=== PATIENT | female | born 1995 | race Caucasian/White ===

== ENCOUNTER → 2019-05-30 15:40 | Observation (INO) ==
[2019-05-30 14:59] LABS: Amphetamine Screen,Urine Negative ng/mL (Cutoff=1000); Barbiturate Screen,Urine Negative ng/mL (Cutoff=200); Benzodiazepines Screen,Urine Negative ng/mL (Cutoff=200); Cannabinoid Screen,Urine Negative ng/mL (Cutoff = 50); Cocaine Screen,Urine Negative ng/mL (Cutoff= 300); Opiate Screen,Urine Negative ng/mL (Cutoff=300); Phencyclidine Screen,Urine Negative ng/mL (Cutoff=25)
--- NOTE | 2019-05-30 15:26 | Discharge Summary ---
Date of Encounter: 05/30/19 Time of Encounter: 15:24 - Discharge Diagnosis (1) Gestational hypertension Priority: Secondary Status: Acute Comments: Start labetalol 200mg BID Qualifiers: Trimester: third trimester Qualified Code(s): O13.3 - Gestational [-induced] hypertension without significant proteinuria, third trimester (2) 32 weeks gestation of Priority: Primary Status: Acute Comments: Follow-up with Dr. Albrecht as scheduled Discharge home - Discharge Medications Prescriptions: New Labetalol HCl 200 mg PO BID #60 tablet Continued Tablet Home Medications: Labetalol HCl 200 mg PO BID #60 tablet 05/30/19 [Rx] Tablet 05/30/19 [History] Allergies/Adverse Reactions: Allergy/AdvReac Type Severity Reaction Status Date / Time No Known Allergies Allergy Verified 05/30/19 13:43 Data Procedures and tests throughout hospitalization: Laboratory Tests 05/30/19 14:20 Urine Opiates Screen Negative Ur Buprenorphine Scrn Negative Ur Barbiturates Screen Negative Ur Phencyclidine Scrn Negative Ur Amphetamines Screen Negative U Benzodiazepines Scrn Negative Urine Cocaine Screen Negative U Marijuana (THC) Screen Negative Ur Drug Screen Interp See Below Labs on day of discharge: Labs from last 24 hours 05/30/19 14:20 Urine Opiates Screen Negative Ur Buprenorphine Scrn Negative Ur Barbiturates Screen Negative Ur Phencyclidine Scrn Negative Ur Amphetamines Screen Negative U Benzodiazepines Scrn Negative Urine Cocaine Screen Negative U Marijuana (THC) Screen Negative Ur Drug Screen Interp See Below Date of admission: 05/30/19 13:22 Primary care physician: PCP NONE Discharging clinician: Lesile Lubin Anticipated date of discharge: 05/30/19 - Patient Status Disposition: Home, Self-Care Condition: Good Functional capacity at discharge: independent ambulation Overall status at discharge: patient is progressing back to baseline - Discharge Instructions Follow Up With: NONE,PCP [Primary Care Provider] - Xander Albrecht MD [Partnered Physician] - Additional Instructions: LABOR AND DELIVERY DISCHARGE INSTRUCTIONS Signs and Symptoms to be Reported to your Doctor Immediately: * Sudden gush, continuous or intermittent lead of fluid from vagina (note the time of gush and color of fluid) * Onset of bright red vaginal bleeding with or without pain (if you had a vaginal exam during this visit you may notice some dark red spotting. This is normal.) * Lower abdominal cramping or backache that is premenstrual-like feeling. * More than 6 contractions in one hour. * Burning during urination, having to urinate more frequently or pain in your mid-back. * A change in the baby's activity. This could be an increase or decrease in activity. * Severe headache which does not go away with tylenol. * Sudden swelling in the face, hands, arms and/or legs. * Upper abdominal pain - sometimes associated with heartburn or nausea and is not relieved by Maalox, Mylanta or Tums. * Dizziness or blurred vision or visual disturbances (seeing stars/lights). * Kick Counts One hour after a meal, lay down on one side in a quiet place. Count the number of john the baby moves during an hour. If less than 6 movements, notify your physician. Diet: *Force fluids - 8-10 tall glasses of fluid per day. May include popsicles and jello. *Limit caffeine - this includes chocolate, coffee, tea, any soft drink containing such as all imtiaz, Matt Yellow and Mountain Dew - Diet and Activity Activity: increase activity as tolerated Diet: regular diet Hospital Course [employer] Reason for admission: other Discharge diagnosis: other Hospital course: Patient presents with complaint of elevated blood pressures at home along with headache and blurry vision. She was monitored for several hours with normotensive pressures. PIH evaluation was negative. She was started on labetalol 200 mg twice a day. She was discharged home in stable condition with instructions for follow-up. Time Attestation: Total time spent providing and/or coordinating discharge services: Time Spent: Less than 30 minutes Exam - Constitutional General appearance IM: A&O X 3 - Respiratory Respiratory exam: Present: CTAB - Cardiovascular Cardiovascular exam IM: Present: RRR, +S1, +S2 - GI/Abdominal GI/Abdominal exam IM: normal bowel sounds - Rectal Rectal exam: deferred - Uterine Tone: Firm - Extremities Exam Extremities exam IM: Present: full ROM - Neurological Exam Neurological exam: alert, oriented X3, strengths equal and symetr throughout - VTE Reasons for not Prescribing Prophylaxis: Treatment not Indicated - Low risk for VTE
== END | disposition home or self-care (01) ==
LOC: 1NENULAB
PROVIDERS: ADMIT Advanced Practice Midwife; ATTEND Advanced Practice Midwife

== ENCOUNTER 2019-06-05 17:34 | Observation (INO) ==
[2019-06-05 18:19] LABS: Basophils % 0.2 %; Eosinophils # 0.1 K/mcL (0.0-0.6); Eosinophils % 0.9 %; Hematocrit 34.1 % (35.3-44.9); Hemoglobin 11.2 g/dL (11.5-15.4); Immature Granulocytes % 0.7 % (0-4); Lymphocytes # 1.6 K/mcL (0.6-4.6); Lymphocytes % 11.5 %; Mean Corpuscular HGB Conc 32.8 g/dL (31.6-35.5); Mean Corpuscular Hemoglobin 29.9 pg (28.0-33.3); Mean Corpuscular Volume 90.9 fL (83.0-100.0); Monocytes # 0.9 K/mcL (0.0-1.3); Monocytes % 6.2 %; Neutrophils # 11.1 K/mcL (1.6-8.9); Platelet Count 228 K/mcL (140-400); Red Blood Count 3.75 M/mcL (3.82-4.97); Red Cell Distribution Width 12.8 % (11.5-14.5); Segmented Neutrophils % 80.5 %; White Blood Count 13.8 K/mcL (4.3-11.1)
[2019-06-05] MEDS ORDERED: Acetaminophen 325 MG TABLET PO ONE (18:24)
[2019-06-05 18:28] LABS: Amphetamine Screen,Urine Negative ng/mL (Cutoff=1000); Barbiturate Screen,Urine Negative ng/mL (Cutoff=200); Benzodiazepines Screen,Urine Negative ng/mL (Cutoff=200); Cannabinoid Screen,Urine Negative ng/mL (Cutoff = 50); Cocaine Screen,Urine Negative ng/mL (Cutoff= 300); Opiate Screen,Urine Negative ng/mL (Cutoff=300); Phencyclidine Screen,Urine Negative ng/mL (Cutoff=25); Protein/Creatinine Ratio,Urine 0.17 mg/mg (0.00-0.20)
[2019-06-05 18:42] LABS: Alanine Aminotransferase 37 Units/L (7-52); Aspartate Amino Transferase 21 Units/L (13-39); BUN/Creatinine Ratio 10 (6-26); Blood Urea Nitrogen 7 mg/dL (6-20); Lactate Dehydrogenase 116 Units/L (140-271); Uric Acid 5.6 mg/dL (2.3-7.6); eGFR For African Americans > 60 (> 60); eGFR For Non-African Americans > 60 (> 60)
== END 2019-06-05 19:16 | disposition home or self-care (01) ==
LOC: 1NENULAB
PROVIDERS: ADMIT Advanced Practice Midwife; ATTEND Advanced Practice Midwife

== ENCOUNTER 2019-06-08 14:00 | Observation (INO) ==
[2019-06-08] MEDS ORDERED: Ondansetron 4 MG/2 ML VIAL IVP PRN (14:36)
[2019-06-08 14:45] LABS: Basophils % 0.4 %; Eosinophils # 0.2 K/mcL (0.0-0.6); Eosinophils % 1.6 %; Hematocrit 34.3 % (35.3-44.9); Hemoglobin 11.5 g/dL (11.5-15.4); Immature Granulocytes % 0.6 % (0-4); Lymphocytes # 1.6 K/mcL (0.6-4.6); Lymphocytes % 13.8 %; Mean Corpuscular HGB Conc 33.5 g/dL (31.6-35.5); Mean Corpuscular Hemoglobin 29.5 pg (28.0-33.3); Mean Corpuscular Volume 87.9 fL (83.0-100.0); Mean Platelet Volume 11.5 fL (9.4-12.4); Monocytes # 0.9 K/mcL (0.0-1.3); Monocytes % 8.2 %; Neutrophils # 8.5 K/mcL (1.6-8.9); Platelet Count 248 K/mcL (140-400); Red Cell Distribution Width 12.8 % (11.5-14.5); Segmented Neutrophils % 75.4 %; White Blood Count 11.3 K/mcL (4.3-11.1)
[2019-06-08 15:00] LABS: Alanine Aminotransferase 48 Units/L (7-52); Aspartate Amino Transferase 24 Units/L (13-39); BUN/Creatinine Ratio 14 (6-26); Blood Urea Nitrogen 11 mg/dL (6-20); Lactate Dehydrogenase 113 Units/L (140-271); Uric Acid 6.1 mg/dL (2.3-7.6); eGFR For African Americans > 60 (> 60); eGFR For Non-African Americans > 60 (> 60)
[2019-06-08] MEDS ORDERED: Ringers Solution, Lactated 1,000 ML IVC ONE (15:00)
[2019-06-08 15:41] LABS: Amphetamine Screen,Urine Negative ng/mL (Cutoff=1000); Barbiturate Screen,Urine Negative ng/mL (Cutoff=200); Creatinine,Urine 102 mg/dL; Protein/Creatinine Ratio,Urine 0.17 mg/mg (0.00-0.20)
[2019-06-08 15:42] LABS: Benzodiazepines Screen,Urine Negative ng/mL (Cutoff=300); Cannabinoid Screen,Urine Negative ng/mL (Cutoff = 50); Cocaine Screen,Urine Negative ng/mL (Cutoff= 300)
[2019-06-08 15:43] LABS: Opiate Screen,Urine Negative ng/mL (Cutoff=300); Phencyclidine Screen,Urine Negative ng/mL (Cutoff=25)
== END 2019-06-08 16:30 | disposition home or self-care (01) ==
LOC: 1NENULAB
PROVIDERS: ADMIT Advanced Practice Midwife; ATTEND Advanced Practice Midwife

== ENCOUNTER 2019-07-18 06:19 | Inpatient (IN) ==
[2019-07-18] MEDS ORDERED: *HR* Nalbuphine 10 MG/ML AMPUL IVP PRN (07:24)
[2019-07-18] MEDS ORDERED: Famotidine 20 MG/2 ML VIAL IVP PRN (07:24)
[2019-07-18] MEDS ORDERED: Metoclopramide 10 MG/2 ML VIAL IVP PRN (07:24)
[2019-07-18] MEDS ORDERED: Naloxone 0.4 MG/ML INJ IVP PRN (07:24)
[2019-07-18] MEDS ORDERED: Ondansetron 4 MG/2 ML VIAL IVP PRN (07:24)
[2019-07-18] MEDS ORDERED: Lidocaine 1% 20 ML MDV INFILT PRN (07:24)
[2019-07-18] MEDS ORDERED: Ringers Solution, Lactated 1,000 ML IVC SCH (07:30)
[2019-07-18] MEDS ORDERED: Oxytocin 20 units/ LR 1000 mL 20 UNIT/1,000 ML BAG IVC SCH (07:30)
[2019-07-18 08:07] LABS: Basophils % 0.4 %; Eosinophils # 0.1 K/mcL (0.0-0.6); Eosinophils % 1.5 %; Hemoglobin 12.3 g/dL (11.5-15.4); Immature Granulocytes % 0.5 % (0-4); Lymphocytes # 1.9 K/mcL (0.6-4.6); Lymphocytes % 20.6 %; Mean Corpuscular HGB Conc 35.1 g/dL (31.6-35.5); Mean Corpuscular Hemoglobin 30.1 pg (28.0-33.3); Mean Corpuscular Volume 85.8 fL (83.0-100.0); Mean Platelet Volume 12.3 fL (9.4-12.4); Monocytes # 0.8 K/mcL (0.0-1.3); Neutrophils # 6.2 K/mcL (1.6-8.9); Platelet Count 209 K/mcL (140-400); Red Blood Count 4.08 M/mcL (3.82-4.97); Red Cell Distribution Width 12.9 % (11.5-14.5); White Blood Count 9.2 K/mcL (4.3-11.1)
[2019-07-18] MEDS: miSOPROStol 25 MCG TABLET VG PRN ×2 (08:12→12:38)
[2019-07-18 08:52] LABS: Amphetamine Screen,Urine Negative ng/mL (Cutoff=1000); Barbiturate Screen,Urine Negative ng/mL (Cutoff=200); Benzodiazepines Screen,Urine Negative ng/mL (Cutoff=200); Cannabinoid Screen,Urine Negative ng/mL (Cutoff = 50); Cocaine Screen,Urine Negative ng/mL (Cutoff= 300); Opiate Screen,Urine Negative ng/mL (Cutoff=300); Phencyclidine Screen,Urine Negative ng/mL (Cutoff=25)
[2019-07-18 10:51] LABS: Alanine Aminotransferase 55 Units/L (7-52); Aspartate Amino Transferase 33 Units/L (13-39); BUN/Creatinine Ratio 15 (6-26); Blood Urea Nitrogen 13 mg/dL (6-20); Glucose 101 mg/dL (70-105); Lactate Dehydrogenase 123 Units/L (140-271); Uric Acid 7.6 mg/dL (2.3-7.6); eGFR For African Americans > 60 (> 60); eGFR For Non-African Americans > 60 (> 60)
[2019-07-18] MEDS ORDERED: EPHEDrine 50 MG/ML VIAL IVP PRN (11:00)
[2019-07-18] MEDS ORDERED: Epidural Premix (fent/bupiv) 110 ML EP SCH (11:00)
[2019-07-18 11:40] LABS: Protein/Creatinine Ratio,Urine 0.24 mg/mg (0.00-0.20)
[2019-07-18] MEDS ORDERED: *HR* FentaNYL (PF) 100 MCG/2 ML VIAL ONE (22:06)
[2019-07-18] MEDS ORDERED: Ropivacaine/PF 0.2% 20 ML VIAL ONE (22:06)
[2019-07-19] MEDS ORDERED: Acetaminophen 325 MG TABLET PO ONE (02:36)
[2019-07-19] MEDS ORDERED: *HR* Morphine Sulfate/PF 10 MG/10 ML AMPUL ONE (05:33)
[2019-07-19] MEDS ORDERED: Chloroprocaine/PF 20 ML VIAL INFILT ONE ×2 (05:33→06:33)
[2019-07-19] MEDS ORDERED: Ringers Solution, Lactated 1,000 ML ONE ×2 (05:41→06:34)
[2019-07-19] MEDS ORDERED: Ondansetron 4 MG/2 ML VIAL ONE (05:49)
[2019-07-19] MEDS ORDERED: Azithromycin 500 MG in 0.9 % Sodium Chloride 250 ML IVPB ONE (05:49)
[2019-07-19] MEDS ORDERED: *HR* Oxytocin 10 UNIT/ML VIAL IM ONE ×2 (05:57→06:42)
[2019-07-19] MEDS ORDERED: *HR* Midazolam HCl 2 MG/2 ML VIAL ONE ×2 (06:09→06:13)
[2019-07-19] MEDS ORDERED: *HR* FentaNYL (PF) 100 MCG/2 ML VIAL ONE (06:13)
[2019-07-19] MEDS ORDERED: *HR* Propofol 200 MG/20 ML VIAL IVP ONE (06:15)
[2019-07-19] MEDS ORDERED: *HR* HYDROmorphone (PF) 1 MG/ML SYRINGE IVP PRN (06:52)
[2019-07-19] MEDS ORDERED: Acetaminophen IV 1,000 MG/100 ML INFUS..BTL IVPB ONE (06:52)
[2019-07-19] MEDS ORDERED: Metoclopramide 10 MG/2 ML VIAL IVP PRN (09:50)
[2019-07-19] MEDS ORDERED: Ringers Solution, Lactated 1,000 ML IVC SCH (09:50)
[2019-07-19] MEDS ORDERED: Oxytocin 20 units/ LR 1000 mL 20 UNIT/1,000 ML BAG IVC SCH (09:50)
[2019-07-19] MEDS ORDERED: Ondansetron 4 MG/2 ML VIAL IVP PRN (09:50)
[2019-07-19] MEDS ORDERED: Sennosides 8.6 MG TABLET PO PRN (09:50)
[2019-07-19] MEDS ORDERED: Rho Immune Globulin 1,500 UNIT SYRINGE IM ONE (09:50)
[2019-07-19] MEDS ORDERED: Naloxone 0.4 MG/ML INJ IVP PRN (09:50)
[2019-07-19] MEDS: Oxytocin 20 units/ LR 1000 mL 20 UNIT/1,000 ML BAG IVC SCH ×2 (10:19→18:05)
[2019-07-19] MEDS: Loratadine 10 MG TABLET PO SCH (11:44)
[2019-07-19] MEDS: Prenatal Vit/FA 1 EACH TABLET PO SCH (11:49)
[2019-07-19] MEDS: Ibuprofen 600 MG TABLET PO PRN ×2 (15:16→21:28)
[2019-07-19] MEDS: *HR* OxyCODONE/APAP 5/325 TABLET PO PRN (20:32)
[2019-07-20] MEDS: Simethicone 80 MG TAB.CHEW PO PRN ×2 (00:19→10:59)
[2019-07-20] MEDS: *HR* OxyCODONE/APAP 5/325 TABLET PO PRN ×5 (00:22→21:46)
[2019-07-20] MEDS: Ibuprofen 600 MG TABLET PO PRN ×3 (05:50→18:17)
[2019-07-20 08:08] LABS: Basophils % 0.1 %; Eosinophils # 0.1 K/mcL (0.0-0.6); Eosinophils % 0.6 %; Hematocrit 30.8 % (35.3-44.9); Immature Granulocytes % 0.8 % (0-4); Lymphocytes # 1.4 K/mcL (0.6-4.6); Lymphocytes % 9.3 %; Mean Corpuscular HGB Conc 33.4 g/dL (31.6-35.5); Mean Corpuscular Hemoglobin 30.2 pg (28.0-33.3); Mean Corpuscular Volume 90.3 fL (83.0-100.0); Mean Platelet Volume 11.7 fL (9.4-12.4); Monocytes % 6.6 %; Neutrophils # 12.3 K/mcL (1.6-8.9); Platelet Count 175 K/mcL (140-400); Red Blood Count 3.41 M/mcL (3.82-4.97); Red Cell Distribution Width 13.4 % (11.5-14.5); Segmented Neutrophils % 82.6 %
[2019-07-20 08:10] LABS: Hemoglobin 10.3 g/dL (11.5-15.4); White Blood Count 14.9 K/mcL (4.3-11.1)
[2019-07-20] MEDS: Loratadine 10 MG TABLET PO SCH (08:12)
[2019-07-20] MEDS: Prenatal Vit/FA 1 EACH TABLET PO SCH (08:12)
[2019-07-21] MEDS: Ibuprofen 600 MG TABLET PO PRN ×4 (01:02→21:59)
[2019-07-21] MEDS: *HR* OxyCODONE/APAP 5/325 TABLET PO PRN ×2 (05:59→12:25)
[2019-07-21] MEDS: Loratadine 10 MG TABLET PO SCH (07:39)
[2019-07-21] MEDS: Prenatal Vit/FA 1 EACH TABLET PO SCH (07:39)
[2019-07-21] MEDS: Simethicone 80 MG TAB.CHEW PO PRN (07:40)
[2019-07-22] MEDS: Ibuprofen 600 MG TABLET PO PRN (04:54)
[2019-07-22 08:06] VITALS: BP 139/99
[2019-07-22] MEDS: Loratadine 10 MG TABLET PO SCH (08:22)
[2019-07-22] MEDS: Prenatal Vit/FA 1 EACH TABLET PO SCH (08:22)
== END 2019-07-22 14:49 | disposition home or self-care (01) | DRG 788 ==
LOC: 1NENULAB 06:19 → 1NENUOBS 07-19 09:00
PROVIDERS: ADMIT Obstetrics & Gynecology; ATTEND Obstetrics & Gynecology